=== PATIENT | female | born 1995 | race Caucasian/White ===

== ENCOUNTER 2025-01-05 17:58 | Emergency (ER) | payer MEDICAID, SELFPAY ==
[2025-01-05 18:03] VITALS: BP 130/86; PULSE 88; RESP 18; TEMP 36.6; O2SAT 100; BMI 38.4
--- NOTE | 2025-01-05 18:37 | ED.DENTAL ---
HPI - Dental/Oral General Chief complaint: Dental/Oral/Mouth Injury/Pain Stated complaint: Jaw pain on both sides and top to bottom Time Seen by Provider: 01/05/25 17:59 History of Present Illness HPI Narrative: This 29-year-old female comes in with dental pain which she has had for about a month. She is trying to get into a dental clinic but has not been able to do so yet. She reports pain in various areas of her mouth but more intensely in the right upper row. She has been using [id number] meds without much relief. Related Data Home Medications ?Medication ?Instructions ?Recorded ?Confirmed sertraline 100 mg tablet 100 mg PO QAM 01/05/25 01/05/25 Allergies Allergy/AdvReac Type Severity Reaction Status Date / Time nickel Allergy Unknown Verified 01/05/25 18:09 Review of Systems Status of ROS: Reports: 10 or more systems reviewed and unremarkable except as noted in History and below Narrative: Constitutional: No fevers, no weight gain or loss. Eyes: No discharge. No vision changes. HENT: No congestion, no sore throat, no ear pain. Dental pain as described above. Cardiovascular: No chest pain, no palpitations. Respiratory: No shortness of breath, no wheezes, no cough. Gastrointestinal: No abdominal pain, no vomiting, no diarrhea. Genitourinary: No dysuria, no hematuria. Musculoskeletal: Normal range of motion. Skin: No rashes, no pruritis. Neurological: No dizziness, weakness, sensory change, speech change. Endo/Heme/Allergies: No bruising or bleeding. No polydipsia. Pysch: no suicidality, no anxiety, no insomnia. All other systems reviewed and are negative. Exam Narrative: Exam Narrative: Constitutional: Well-developed, well-nourished, no acute distress. HEENT: Normocephalic, atraumatic. Poor dentition but no obvious sign of dental fracture or abscess. Neck: Normal range of motion. Nontender. Supple. Heart: Intact distal pulses. Lungs: No chest discomfort. No wheezes, rhonchi, or rales. Abdomen: Nontender. Back: Normal range of motion. Extremities: Normal range of motion. No injury. Skin: Intact. No rash. Warm. No erythema or pallor. Neurologic: No altered sensation. No weakness. Alert and oriented. Psychiatric: No suicidality. No anxiety or depression. No insomnia. Nursing notes and vitals signs are reviewed. Const: Vital Signs, click to edit/add: Vital Signs - 24 hr 01/05/25 18:03 Temperature 98 F Pulse Rate [Right Pulse Oximeter] 88 Respiratory Rate 18 Blood Pressure [Ri ght Upper Arm] 130/86 Pulse Oximetry 100 Oxygen Delivery Me thod Room Air Course Vital Signs Vital signs: Initial Vital Signs Temperature 98 F 01/05/25 18:03 Temperature Source Temporal Artery Scan 01/05/25 18:03 Pulse Rate 88 01/05/25 18:03 Pulse Rhythm Regular 01/05/25 18:03 Pulse Strength 3+ Normal 01/05/25 18:03 Respiratory Rate 18 01/05/25 18:03 Blood Pressure 130/86 01/05/25 18:03 Blood Pressure Mean 100 01/05/25 18:03 Blood Pressure Position Sitting 01/05/25 18:03 Pulse Oximetry 100 01/05/25 18:03 Oxygen Delivery Method Room Air 01/05/25 18:03 Vital Signs Temperature 98 F 01/05/25 18:03 Pulse Rate 88 01/05/25 18:03 Respiratory Rate 18 01/05/25 18:03 Blood Pressure 130/86 01/05/25 18:03 Pulse Oximetry 100 01/05/25 18:03 Oxygen Delivery Method Room Air 01/05/25 18:03 Temperature 98 F 01/05/25 18:03 Pulse Rate 88 01/05/25 18:03 Respiratory Rate 18 01/05/25 18:03 Blood Pressure 130/86 01/05/25 18:03 Pulse Oximetry 100 01/05/25 18:03 Oxygen Delivery Method Room Air 01/05/25 18:03 MDM - Dental/Oral MDM Narrative Medical decision making narrative: This patient comes in with dental pain that will need the services of a dentist for more definitive diagnosis and treatment. She did receive a nerve block above the most painful tooth in the right upper row. This was done with bupivacaine 0.25%. This did bring relief to pain in that area. I did provide prescriptions from [facility] for Toradol and amoxicillin. Discharge Plan Discharge Clinical Impression: Toothache Patient Disposition: Home, Self-Care Condition: Stable Additional Instructions: Take medication as prescribed and needed. Follow-up with dentist as soon as possible. Prescriptions: No Action sertraline 100 mg tablet 100 mg PO QAM Follow Up/Referrals: Mary Kay Pisano PA-C [Primary Care Provider, Family Practice] Stand Alone Forms: [facility] [facility] Info Instructions
--- OUTSIDE RECORDS SUMMARY | 2025-01-05 19:02 | XMS_ITS | Clinical Summary ---
Author Organization [facility] Address [address] [place] [id number] Care Team Providers Care Bowling Ball Molder Name Role Phone Mary Kay Pisano Primary Care Provider Allergies Active Allergy Reactions Criticality Noted Date Comments Nickel 12/18/2009 Medications hydrOXYzine HCL (ATARAX) 25 mg tabletIndicatio ns:Anxiety Take 1 Tablet (25 mg) by mouth every 8 hours if needed for Anxiety. 25 Tablet 3 Active sertraline 100 mg tabletIndicatio ns:Anxiety Take 1 Tablet (100 mg) by mouth once daily in the morning. 90 Tablet 3 5 Active mupirocin 2% ointmentIndicat ions:Fissure in ano Apply topically to affected area(s) three times daily. 22 g 3 5 Active Active Problems Problem Noted Date Diagnosed Date Pap smear for cervical cancer screening 10/07/19 24 Overview (10/07/2023): 08/2023 NIL/HPV negative Plan: HPV based testing in 5 years Adjustment disorder with depressed mood 02/15/20 10 Immunizations Immunization Administration Dates Next Due DTP 01/08/1997,1995,1995 ,1995 DTaP 12/19/1999 HIB HbOC (HibTITER) 01/08/1997,1995,1995,1995 Hepatitis B (Peds) 06/19/1996,1995, 996 Human Papilloma Virus Vaccine 01/25/2012, 012,01/27/2008 Inactivated Polio Vaccine 12/19/1999,1995, 1995,1995 Influenza, IIV4 02/13/2020,04/07/2016 MMR 12/19/1999,01/08/1997 Meningococcal Vaccine (Menactra) 01/27/2008 Tdap 09/19/2018,01/27/2008 Family History Medical History Relation Name Comments Good Health Mother Relation Name Status Comments Mother Social History Tobacco Use Types Packs/Day Years Used Date Smoking Tobacco: Never Passive Smoke Exposure: Current Smokeless Tobacco: Never Tobacco Cessation:Counseling Given: Yes Comments:second hand smoke Alcohol Use Standard Drinks/Week Comments Not Currently 0 (1 standard drink = 0.6 oz pur e alcohol) PHQ-2 Answer Date Recorded PHQ-2 TOTAL SCORE 5 12/22/2023 Social Connections Answer Date Recorded Do you often feel lonely or isolated from those around you? 4 08/23/2024 Financial Resource Strain Answer Date R ecorded Difficulty of Paying Living Expenses Not on file 08/23/2024 Difficulty of Paying Living Expenses 3 08/23/2024 Food Insecurity Answer Date Recorded Do you worry your food will run out before you are able to buy more? 1 08/23/2024 Transportation Needs Answer Date Record ed Does lack of transportation keep you from medica l appointments? 1 08/23/2024 Does lack of transportation keep you from work, meetings or getting things that you need? 1 08/23/2024 Housing Stability Answer Date Recorded What is your housing situation today? 1 08/23/2024 Utilities Answer Date Recorded Do you have trouble paying f or utilities (for example, heat, electricity, water, phone)? 2 08/23/2024 Comments No Sex and Gender Information Value Date Recorded Sex Assigned at Not on file Legal Sex Female 5:27 AM [employer] Gender Identity Not on file Sexual Orientation Not on file Obstetrics History Last Filed Vital Signs Vital Sign Reading Time Taken Comments Blood Pressure 112/77 08/23/2024 8:20 AM CDT Pulse 90 09/19/2024 1:52 PM CDT Temperature 36.4 C (97.6 F) 12/22/2023 11:00 AM CDT Respiratory Rate - - Oxygen Saturation 100% 09/19/2024 1:52 PM CDT Inhaled Oxygen Concentration - - Weight 109.8 kg (242 lb) 09/19/2024 1:52 PM CDT Height 164.2 cm (5' 4.65) 09/22/2023 9:18 AM CD T Body Mass Index 40.71 09/22/2023 9:18 AM CDT Plan of Treatment Health Maintenance Due Date Last Done Comments COVID-19 vaccine series (2023- season) 2024 01/11/2021, 12/09/2020 BMI (ht and wt on same day) for age 18+ 09/21/2024 09/22/2023, 01/25/2023, 11/25/2022, Additional history exists Depression screening for age 12+ 12/21/2024 12/22/2023, 01/25/2023, 06/10/2021, Additional history exists Influenza Vaccine (#1) 2025 02/13/2020, 2015 Tetanus booster 09/19/2028 09/19/2018, 01/27/2008 Pap test for age 21-65 09/21/2028 , 09/22/2023, 03/27/2020 Hepatitis B series for 19+ Completed 06/19, 1995, 1995 HIV for age 15-65 Completed 01/25/2023 Hepatitis C screening for age 18-79 Completed 01/25/2023 Pneumococcal series for age 6-49 Aged Out No longer eligible based on patient's age to complete this topic Procedures Procedure Name Priority Date/Time Associated Diagnosis Comments COMMUNICATIONS DESIGNER THIN PREP PAP SCREEN IMAGED Routine 09/22/2023 9:39 AM CDT Screening for cervical cancer LC HIV-1/O/2, 4TH GENERATION Routine 01/25/2023 9:14 AM CDT Screening for HIV (human immunodeficiency virus) LC HCV ANTIBODY RFX TO QUANT PCR Routine 01/25/2023 9:14 AM CDT Need for hepatitis C screening test from Last 3 Months or Most Recently Relevant to Health Maintenance Results * COMMUNICATIONS DESIGNER THIN PREP PAP SCREEN IMAGED [[id number]] (09/22/2023 9:39 AM CDT) Case Report Gynecologic Cytology Report Case: [id number] Authorizing Provider: Mary Kay Pisano PA Collected: 09/22/2023 0939 Ordering Location: [facility] Received: 09/22/2023 0951 Clinic First Screen: Anita Welch Pathologist: Javier Ruff MD Specimen: COMMUNICATIONS DESIGNER ThinPrep Vial Screening, Cervical 10/07/2023 2:57 PM CDT [employer] [facility] INTERPRETATION/ RESULT NEGATIVE FOR INTRAEPITHELIAL LESION OR MALIGNANCY (NIL) (none) 10/07/2023 2:57 PM CDT [facility] at 1457 CDT OTHER NON-NEOPLASTIC FINDING(S) Reactive cellular changes associated with inflammation/repa ir 10/07/2023 2:57 PM CDT [facility] SPECIMEN ADEQUACY Satisfactory for evaluation Endocervical component present 10/07/2023 2:57 PM CDT [facility] HPV REQUEST HPV and PAP 10/07/2023 2:57 PM CDT [facility] Date of LMP 09/02/2023 10/07/2023 2:57 PM CDT [facility] Last Pap Date 03/27/20 10/07/2023 2:57 PM CDT [facility] Last Pap Result NIL 2:57 PM CDT [facility] Abnormal Pap or Eldena Bx in last 5 years No 10/07/2023 2:57 PM CDT [facility] Menstrual Status Regular Periods 10/07/2023 2:57 PM CDT [facility] Eldena Bx Done Today No 10/07/2023 2:57 PM CDT [facility] Additional Information None given 10/07/2023 2:57 PM CDT [facility] Comment: Cytology is screened at [facility] - [address], [place] [address] and [facility] - [address] [place] [address], [place] [address] and [facility] - [address] [place] [address] Interpreted at [facility] - [address], [place] [address] Automated Review Successful 10/07/2023 2:57 PM CDT [facility] Comment:Specimen processed s uccessfully by automated expedition supervisor device, ThinPrep Imaging System, [employer] ANCILLARY TESTING COMMUNICATIONS DESIGNER HPV Ordered, Please see separate report 10/07/2023 2:57 PM CDT [facility] Note The pap test is a screening technique, not a diagnostic procedure. It is used primarily to screen for squamous cancers and precursor lesions. Published studies have shown that it is subject to both false negative and false positive results. The pap test should not be used as the sole means to diagnose or exclude pre-malignant and malignant lesions. 10/07/2023 2:57 PM CDT [facility] Other (Cervical) Non-Blood / Unknown 09/22/2023 9:39 AM CDT 09/22/2023 9:51 AM CDT Mary Kay CR PATHOLOGY/CYTOLOGY Juli petersen Result [facility] [address] [place] [address], * LC HCV ANTIBODY RFX TO QUANT PCR (01/25/2023 9:14 AM CDT) HCV Ab Non Reactive Non Reactive 01/28/2023 3:07 AM CDT [facility]) Blood BLOOD SPECIMEN / Unknown Venipuncture / Unknown 01/25/2023 9:14 AM CDT 01/25/2023 9:17 AM CDT Narrative [facility]) - 01/28/2023 3:07 AM CDT Performed at: [address] [place] [id number] Filler Picker: John Montano MD, Phone: [phone] Mary Kay CR LABORATORY Final R esult Performing Organization Address City/[facility]/ZIP Co de Phone Number [facility] ([facility]) [address] [place] [address], * HIV-1/O/2, 4TH GENERATION (01/25/2023 9:14 AM CDT) [facility] HIV Scr 4th Gen Non Reactive Non Reactive 01/28/2023 4:07 AM CDT [facility] ([facility]) Comment: HIV Negative HIV-1/HIV-2 antibodies and HIV-1 p24 antigen were NOT detected. There is no laboratory evidence of HIV infection. Blood BLOOD SPECIMEN / Unknown Venipuncture / Unknown 01/25/2023 9:14 AM CDT 01/25/2023 9:17 AM CDT Narrative [facility]) - 01/28/2023 4:07 AM CDT Performed at: [address] [place] [id number] Filler Picker: John Montano MD, Phone: [phone] Mary Kay CR LABORATORY Final R esult Performing Organization Address City/[facility]/ZIP Co de Phone Number [facility] ([facility]) [address] [place] [address] from Last 3 Months or Most Recently Relevant to Health Maintenance Insurance [place] [id number] [phone] (Home) ATTN: TESS NAVARRO [id number] [id number] * Guarantor: [employer] Account Type Relation to Patient Date of Phone Billing Address Occ Health/Amy Employer [address] [place] [address] Care Teams Bowling Ball Molder Relationship Specialty Start Date End Date Mary Kay Pisano PA [address] [place] [address] PCP - General Family Practice 01/22/12
== END 2025-01-05 19:07 | disposition home or self-care (01) ==
PROVIDERS: Emergency Provider Emergency Medicine Emergency Medical Services; PCP Physician Assistant Medical
DX: K08.89 Other specified disorders of teeth and supporting structures (principal)
CPT/HCPCS: 99283; 99284